=== PATIENT | male | born 1960 | race African-American/Black ===

== ENCOUNTER → 2020-10-23 15:30 | Outpatient (CLI) | payer MEDICARE, MEDICAID, SELFPAY ==
--- NOTE | ~2020-10-23 | XR_ITS ---
EXAMINATION: XR knee RT 2V DATE: 10/23/2020 15:51 INDICATION: Right knee pain TECHNIQUE: Two views of the right knee were obtained. COMPARISON: None. FINDINGS: Alignment is normal. No fracture or osteochondral lesion. There is tricompartmental osteoar thritis, moderate in the patellofemoral and lateral compartments and severe in the medial compartment . There is a small knee joint effusion. Calcified atherosclerosis is noted. IMPRESSION: 1. Tricompartmental osteoarthritis, severe in the medial compartment. 2. Small joint effusion. Reviewed, dictated and finalized at location A.
--- NOTE | ~2020-10-23 | XR_ITS ---
EXAMINATION: XR knee LT 2V DATE: 10/23/2020 15:51 INDICATION: Left knee pain TECHNIQUE: Two views of the left knee were obtained. COMPARISON: None. FINDINGS: Alignment is normal. No fracture or osteochondral lesion. There is tricompartmental osteoar thritis, moderate in the patellofemoral and lateral compartments and severe in the medial compartment . Calcified atherosclerosis is noted. No joint effusion/synovitis. IMPRESSION: 1. Tricompartmental osteoarthritis, severe in the medial compartment. Reviewed, dictated and finalized at location A.
== END ==
PROVIDERS: Visit Provider Nurse Practitioner Family
DX: M25.561 Pain in right knee (principal); M25.562 Pain in left knee; M17.0 Bilateral primary osteoarthritis of knee; M25.461 Effusion, right knee
CPT/HCPCS: 73560